=== PATIENT | male | born 1950 | race Two or more races ===

== ENCOUNTER 2017-10-27 20:43 | Emergency (ER) | payer SELFPAY ==
[~2017-10-27] VITALS: Ht 170.2 cm; Wt 72.6 kg
[~2017-10-27 20:43] MED LIST: KEPPRA500 M4 ORAL; NKM; UNOBMED
[2017-10-28 01:22] VITALS: BP 149/67
[2017-10-28 05:00] VITALS: BP 134/66
[2017-10-28 05:20] VITALS: BP 149/67
--- NOTE | 2017-10-28 05:47 | Emergency Room Report ---
History of Present Illness General Chief Complaint: Altered Level of Consciousness Source: Patient, EMS Present Illness HPI 67-year-old male presents ED for evaluation. Patient brought in by EMS altered , history of EtOH. Upon arrival patient unable to provide any additional history. No signs of trauma. No other aggravating or leading factors. No other associated symptoms Allergies: Coded Allergies: NO KNOWN ALLERGIES (Unverified Allergy, Unknown, 09/19/17) No Known Allergies (Unverified , 11/20/14) Patient History Past Medical History: DM, HTN, seizures Past Surgical History: none Pertinent Family History: none Social History: Reports: alcohol use, Denies: smoking, drug use Immunizations: UTD Reviewed Nursing Documentation: PMH: Agreed, PSxH: Agreed Nursing Documentation-PMH Hx Hypertension: Yes Hx Diabetes: Yes Hx Seizures: Yes Review of Systems All Other Systems: limited Physical Exam Vital Signs Date Time Temp Pulse Resp B/P (MAP) Pulse Ox O2 Delivery O2 Flow Rate FiO2 10/27/17 20:42 97.8 77 18 167/71 98 Room Air 97.9 Sp02 EP Interpretation: reviewed, normal General Appearance: lethargic Head: normocephalic Eyes: bilateral eye normal inspection, bilateral eye PERRL ENT: normal ENT inspection Neck: normal inspection Respiratory: chest non-tender, lungs clear, normal breath sounds, speaking full sentences Cardiovascular #1: regular rate, rhythm, no edema Gastrointestinal: normal bowel sounds, non tender, soft, non-distended, no guarding, no rebound Rectal: deferred Genitourinary: no CVA tenderness Musculoskeletal: normal inspection Neurologic: alert, oriented x3, responsive, motor strength/tone normal, sensory intact, speech normal Psychiatric: normal inspection Skin: normal inspection Lymphatic: normal inspection Medical Decision Making Diagnostic Impression: Primary Impression: Alcohol intoxication Qualified Codes: F10.929 - Alcohol use, unspecified with intoxication, unspecified ER Course Hospital Course 67-year-old male presents to ED status post EtOH intoxication. Clinical course Patient placed on stretcher. After initial history and physical I ordered CT head CT head unremarkable Patient allowed to sleep. My assessment shows no evidence of SI/HI requiring psychiatric evaluation. Patient allowed to rest in now awake alert oriented x3. ambulating without difficulty. Family is at bedside and can take patient home. Diagnosis - ETOH intoxication stable and discharged to home. Followup with PMD. Return to ED if symptoms recur or worsen CT/MRI/US Diagnostic Results CT/MRI/US Diagnostic Results : Imaging Test Ordered: CT Head Impression no acute process Last Vital Signs Date Time Temp Pulse Resp B/P (MAP) Pulse Ox O2 Delivery O2 Flow Rate FiO2 10/28/17 05:20 97.9 61 18 149/67 98 Room Air 97.9 Status: improved Disposition: HOME, SELF-CARE Condition: Stable Referrals: NOT CHOSEN IPA/MD,REFERRING (PCP) Patient Instructions: Alcohol Intoxication, [id number] YANA WHITE M.D. Oct 28, 2017 05:47
--- NOTE | 2017-10-28 10:53 | Diagnostic Imaging Report ---
Indications: Altered mental status Technique: Spiral acquisitions obtained through the brain. Angled axial and coronal 5 x 5 mm slices were reconstructed. Total dose length product 2223.75 mGycm. CTDI vol(s) 70.38,70.38 mGy. 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 There is mild encephalomalacia deep to it, unchanged. No acute intracranial hemorrhage or edema, mass effect, or midline shift. There is age-related enlargement of the ventricles and extra axial CSF spaces. There is periventricular deep white matter chronic ischemic change. Old lacunar infarct is again demonstrated in the left basal ganglia, less conspicuous than on the prior study Otherwise normal poon-white differentiation. There is minimal maxillary, ethmoid, and frontal sinus mucosal thickening. The mastoids are clear. Again demonstrated is hardware repairing old healed left orbital fracture Impression: Negative for acute intracranial bleed or mass effect Chronic and age-related changes, as described Postsurgical changes of the left frontal region, also previously reported. Underlying mild encephalomalacia, likewise unchanged Old left basal ganglia lacunar infarct This agrees with the preliminary interpretation provided overnight by [facility]. The CT scanner at [facility] is accredited by the [employer] and the scans are performed using protocols designed to limit radiation exposure to as low as reasonably achievable to attain images of sufficient resolution adequate for diagnostic evaluation.
== END 2017-10-28 05:20 | disposition home or self-care (01) ==
LOC: EDBD 20:43 → EMR 20:57
DX: F10.929 Alcohol use, unspecified with intoxication, unspecified (principal); I10 Essential (primary) hypertension; E11.9 Type 2 diabetes mellitus without complications
CPT/HCPCS: 70450; 96360; 99284